=== PATIENT | female | born 1955 | race Caucasian/White ===

== ENCOUNTER → 2016-11-12 | Outpatient (CLI) | payer BC ==
[~2016-11-12] MED LIST: ALPRAZOLAM PO; CHANTIX PO; COLESTID PO; LIPITOR40 MG PO; LISINOPRIL20 MG PO; LOMOTIL WHITE2.5 M1 PO; PANTOPRAZOLE SO40 MG PO
--- NOTE | ~2016-11-12 | MY29 ---
[facility] A Service of [facility] RADIOLOGY TEXT RESULTS PATIENT: SHANA MOODY LOCATION: [facility] : 53 UNIT #: [id number] AGE: [address]: Tiago Knox MD SEX: F ORDER DR: [id number] [facility]. [place], [place] [address] [id number] O MR#: [id number] Acc #: [id number] NAME: SHANA MOODY : 1955 SEX: F STUDY DATE/TIME: 11/12/2016 12:14 UNIT: [facility] ROOM: STUDY DESCRIPTION: MY ABILIO SCREENING W/ CAD BILAT Attending Physician: Tiago Knox M.D. Referring Physician: Tiago Knox M.D. Ordering Physician: Tiago Knox M.D. Primary Care Physician: Cedric Caruso M.D. MEDICAL IMAGING REPORT This report is preliminary unless electronic signature is present EXAM Bilateral digital screening mammogram with CAD. HISTORY Routine screening. No current complaints. Family history of breast cancer in mother. COMPARISON 10/10/2015 and 01/26/2015. TECHNIQUE MLO and CC digital views of each breast were obtained. The exam was reviewed with FDA-approved CAD. FINDINGS There are scattered fibroglandular densities present. There are no masses or abnormal calcifications. There has been no change. IMPRESSION No change. No evidence of malignancy. BIRADS category 1N. Patients over the age of 40 are entered into a reminder system with target due date for the next mammogram. A result letter will also be sent to the patient. BIRADS: 1 Negative. Dictated by... Kapil Hong M.D. THIS IS AN ELECTRONICALLY VERIFIED REPORT [facility] A Service [facility] RADIOLOGY TEXT RESULTS PATIENT: SHANA MOODY LOCATION: [facility] : 53 UNIT #: [id number] AGE: [address]: Tiago Knox MD SEX: F ORDER DR: Kapil Hong M.D. at 11/13/2016 7:07 AM BOOM/reanna TD: 11/12/2016 20:56 JOB #: [id number] MEDICAL IMAGING REPORT Page 1 of 1 COPY
== END | disposition home or self-care (01) ==
LOC: CWCC 11:39
DX: Z12.31 Encounter for screening mammogram for malignant neoplasm of breast (principal); Z80.3 Family history of malignant neoplasm of breast
CPT/HCPCS: G0202